=== PATIENT | male | born 1985 | race Caucasian/White ===

== ENCOUNTER 2016-10-20 13:39 | Emergency (ER) | payer OTHER ==
[2016-10-20 13:57] VITALS: BP 155/100
[2016-10-20] MEDS ORDERED: SILVER SULFADIAZINE 50 APPL JAR TP ONE (15:05)
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
== END 2016-10-20 15:38 | disposition home or self-care (01) ==
LOC: ER 13:39
DX: T21.22XA Burn of second degree of abdominal wall, initial encounter (principal); T22.211A Burn of second degree of right forearm, initial encounter; X12.XXXA Contact with other hot fluids, initial encounter; Y93.89 Activity, other specified; Y92.009 Unspecified place in unspecified non-institutional (private) residence as the place of occurrence of the external cause